=== PATIENT | male | born 1990 ===

== ENCOUNTER 2017-07-23 11:32 | Emergency (ER) | payer MEDICAID ==
--- NOTE | 2017-07-23 12:49 | C.PDOC ---
History Of Present Illness 26 y/o male presents to the ER complaining of subjective fever, headache, dizziness,and runny nose which has been present for the past 2 days. Patient reports that he has been having sinus issues and "borderline HTN" since March 2017. Patient reports that he received a flu vaccination in May 2017. Patient denies nausea, vomiting, and diarrhea. HPI: Influenza Time Seen by Provider: 07/23/17 11:53 Chief Complaint: Flu-like Symptoms History Per: Patient Exam Limitations: no limitations Onset/Duration Of Symptoms: Days Symptoms include: fever (subjective fever), headache. denies: vomiting, diarrhea Hx Influenza Vaccination: Yes (May 2017) Risk factors for flu complications: No: adult > 65 years Past Medical History Reviewed: Historical Data, Nursing Documentation, Vital Signs Vital Signs: Last Vital Signs Temp 98.3 F 07/23/17 11:44 Pulse 87 07/23/17 11:44 Resp 16 07/23/17 11:44 BP 153/83 H 07/23/17 11:44 Pulse Ox 98 07/23/17 11:44 - Medical History PMH: HTN Other Surgeries: Hx of surgeries Family History: States: No Known Family Hx - Social History Hx Tobacco Use: No Hx Alcohol Use: No Hx Substance Use: No - Immunization History Hx Tetanus Toxoid Vaccination: No Hx Influenza Vaccination: Yes (MAY 2017) Hx Pneumococcal Vaccination: No Review Of Systems Except As Marked, All Systems Reviewed And Found Negative. Constitutional: Positive for: Fever (subjective fever). Negative for: Chills ENT: Positive for: Nose Discharge Gastrointestinal: Negative for: Nausea, Vomiting, Diarrhea Neurological: Positive for: Headache, Dizziness Physical Exam - Physical Exam Appears: Non-toxic, No Acute Distress Skin: Normal Color, Warm Head: Atraumatic, Normacephalic Eye(s): bilateral: Normal Inspection Nose: Normal Oral Mucosa: Moist Throat: Normal, No Erythema, No Exudate Neck: Supple Chest: Symmetrical Extremity: Normal ROM Neurological/Psych: Oriented x3, Normal Speech, Normal Motor, Normal Sensation Medical Decision Making Medical Decision Making: Plan: --Motrin PO --Tamiflu PO --Tylenol PO - ECG O2 Sat by Pulse Oximetry: 98 Disposition Counseled Patient/Family Regarding: Diagnosis, Need For Followup - Disposition Referrals: [facility] [Outside] Disposition: HOME/ ROUTINE Disposition Time: 12:50 Condition: STABLE Prescriptions: Ibuprofen [Motrin] 600 mg PO TID #15 tab Oseltamivir [Tamiflu] 1 cap PO BID #10 cap Instructions: Flu, Adult (DC) Forms: General Discharge Instructions, [facility] ([place]), Work Excuse - POA Present On Arrival: None - Clinical Impression Clinical Impression: Influenza - Scribe Statement The provider has reviewed the documentation as recorded by the Brigid Medrano Provider Attestation: All medical record entries made by the Brigid were at my direction and personally dictated by me. I have reviewed the chart and agree that the record accurately reflects my personal performance of the history, physical exam, medical decision making, and the department course for this patient. I have also personally directed, reviewed, and agree with the discharge instructions and disposition.
[2017-07-23 12:52] VITALS: BP 130/79; PULSE 67; RESP 20; TEMP 97.9
[2017-07-23 12:53] VITALS: O2SAT 98
== END 2017-07-23 12:58 | disposition home or self-care (01) ==
LOC: C.ER 11:32
DX: J11.1 Influenza due to unidentified influenza virus with other respiratory manifestations (principal)